=== PATIENT | male | born 1965 | race Caucasian/White ===

== ENCOUNTER 2017-08-22 19:46 | Emergency (ER) | payer MEDICARE, MEDICAID ==
[2017-08-22 22:25] VITALS: BP 112/68
--- NOTE | 2017-08-23 07:43 | RAD ---
INDICATION: Soft tissue neck for foreign body . Chicken bone stuck in throat for 6 months to one year COMPARISON: None TECHNIQUE: 2 views the neck were obtained with soft tissue technique FINDINGS: There is no radiopaque foreign body. The soft tissues of the neck are normal for age. There is no acute osseous change. IMPRESSION: NO RADIOPAQUE FOREIGN BODY. SUGGEST ENT REFERRAL IF THERE IS PERSISTENT CONCERN.
--- NOTE | 2017-08-23 07:44 | RAD ---
INDICATION: Potential foreign body. No current respiratory distress. COMPARISON: None TECHNIQUE: PA and lateral dual-energy views were obtained. FINDINGS: Bones/Soft Tissues: There are no acute bony findings. There is osteopenia with mild kyphosis. Cardiomediastinal: The cardiomediastinal silhouette is normal. Lungs: There are no infiltrates. Pleura: There are no pleural effusions. Other: None IMPRESSION: NO ACTIVE DISEASE.
== END 2017-08-23 00:28 | disposition left against medical advice (07) ==
LOC: ED 19:46
DX: T17.208A Unspecified foreign body in pharynx causing other injury, initial encounter (principal); X58.XXXA Exposure to other specified factors, initial encounter; Y92.9 Unspecified place or not applicable; Z53.21 Procedure and treatment not carried out due to patient leaving prior to being seen by health care provider
CPT/HCPCS: 70360; 71020; 99282

== ENCOUNTER 2024-03-12 21:02 | Observation (INO) ==
[2024-03-12 22:25] LABS: ABS Basophils 0.1 10^3/uL (0.0-0.1); ABS Eosinophils 0.3 10^3/uL (0.0-0.5); ABS Lymphocytes 1.7 10^3/uL (1.0-4.8); ABS Monocytes 0.6 10^3/uL (0.0-1.1); ABS Neutrophils 2.6 10^3/uL (1.5-7.6); ABS Nucleated RBC 0.01 10^3/ul; Eosinophil % 4.8 %; Hematocrit 38.9 % (38-53); Hemoglobin 13.4 g/dL (13.2-16.3); Lymphocyte % 32.8 %; Mean Corpuscular Hemoglobin 31.7 pg (27-33); Mean Corpuscular Hgb Conc 34.4 g/dL (31-36); Mean Corpuscular Volume 92.1 fL (80-97); Mean Platelet Volume 6.8 fL (7.5-11.2); Nucleated Red Blood Cells % 0.1 %/100WBC (0.0-0.8); Platelet Count 222 10^3/uL (150-450); Red Blood Count 4.22 10^6/uL (4.06-5.63); Red Cell Distribution Width 13.9 % (12-17); White Blood Count 5.2 10^3/uL (3.6-10.2)
[2024-03-12 22:33] LABS: Activated Partial Thrombo Time 30.4 seconds (26.0-38.0); INR 0.96 (0.83-1.13)
[2024-03-12 22:43] LABS: Albumin/Globulin Ratio 1.8 (1-3); Calcium 8.3 mg/dL (8.6-10.3); Creatinine, Serum 0.75 mg/dL (0.67-1.17); Globulin 2.2 g/dL (2-4); Potassium 4.3 mmol/L (3.5-5.0); Total Bilirubin 0.2 mg/dL (0.2-1.0); Total Protein 6.2 g/dL (6.4-8.9)
[2024-03-13 00:45] LABS: High Sensitivity Troponin 1 Hr 4 pg/mL (<20)
[2024-03-13] MEDS: cefTRIAXone 1 gm/50 mL D5W 1 GM/50 ML BAG IV ONE (02:29)
[2024-03-13] MEDS: Enoxaparin 40 MG/0.4 ML SYR SUBCUT SCH (02:34)
[2024-03-13] MEDS: Albuterol/Ipratropium NEB.SOL (2.5/0.5 MG) 3 ML NEB.SOLN INH SCH ×2 (02:52→17:46)
[2024-03-13] MEDS: Iohexol 350 (CONTRAST) 500 ML MDV IV ONE (02:53)
[2024-03-13] MEDS: Albuterol/Ipratropium NEB.SOL (2.5/0.5 MG) 3 ML NEB.SOLN INH PRN (03:02)
[2024-03-13] MEDS: Mometasone/Formoter 100/5 MDI INH SCH (11:20)
[2024-03-13] MEDS: SPIRIVA Respimat (tiotropium) 2.5 mcg/inh Inhaler INH SCH (11:21)
[2024-03-13] MEDS: Nicotine PATCH 21 MG/24 HR PATCH TRANSDERM SCH (13:25)
[2024-03-13] MEDS: Fluticasone NASAL SPRAY 50MCG 16 gm SPRAY BTL BOTH NARES SCH (13:26)
[2024-03-13] MEDS ORDERED: Albuterol/Ipratropium NEB.SOL (2.5/0.5 MG) 3 ML NEB.SOLN INH PRN (18:52)
[2024-03-13] MEDS ORDERED: Albuterol/Ipratropium NEB.SOL (2.5/0.5 MG) 3 ML NEB.SOLN INH SCH (19:00)
[2024-03-14] MEDS ORDERED: cefTRIAXone 1 gm/50 mL D5W 1 GM/50 ML BAG IV SCH (06:00)
[2024-03-14 09:44] LABS: Urine Benzodiazepine Screen None Detected (None Detect); Urine Cannabinoids Screen None Detected (None Detect); Urine Opiates Screen None Detected (None Detect)
[2024-03-14 10:16] VITALS: BP 131/87
== END 2024-03-14 11:15 | disposition home or self-care (01) ==
LOC: EDHOLD 22:09 → ED 22:09 → SUATTDRO 03-13 01:12 → MED 03-13 15:20
PROVIDERS: ADMIT Hospitalist; ATTEND Internal Medicine